=== PATIENT | male | born 1965 | race Caucasian/White ===

== ENCOUNTER 2021-10-31 11:14 | Emergency (ER) | payer OTHER ==
[~2021-10-31] VITALS: Ht 160 cm; Wt 84.1 kg
[2021-10-31 11:45] VITALS: BP 138/84
[2021-10-31] MEDS ORDERED: ALBUTEROL SULFATE HFA 90 MCG/PUFF 8 GM INHALER IH ONE (16:30)
== END 2021-10-31 17:26 | disposition home or self-care (01) ==
LOC: EMS 11:14
DX: R05.9 Cough, unspecified (principal); F17.210 Nicotine dependence, cigarettes, uncomplicated; Z20.822 Contact with and (suspected) exposure to COVID-19
CPT/HCPCS: 94640; 99283; J3535

== ENCOUNTER 2024-01-02 18:33 | Emergency (ER) | payer OTHER ==
[~2024-01-02] VITALS: Ht 160 cm; Wt 77.3 kg
[2024-01-02 18:37] VITALS: TEMP 98.6
[2024-01-02] MEDS ORDERED: SITA50 PO (18:41)
[2024-01-02] MEDS ORDERED: ASPI81TA87 PO (18:41)
[2024-01-02] MEDS ORDERED: SACU1TAB PO (18:41)
[2024-01-02] MEDS ORDERED: METF-1211 PO (18:41)
[2024-01-02] MEDS ORDERED: ATOR10TA PO (18:41)
[2024-01-02 20:20] LABS: EOSINOPHILS % (AUTO) 1.8 % (1.0-6.0); HEMATOCRIT 37.7 % (41-53); HEMOGLOBIN 13.1 g/dL (13.5-17.5); LYMPHOCYTES # (AUTO) 2.7 K/uL (1.0-4.8); LYMPHOCYTES % (AUTO) 33.9 % (22.0-44.0); MEAN CORPUSCULAR HEMOGLOBIN 32.7 pg (26.0-34.0); MEAN CORPUSCULAR HGB CONC 34.7 G/dL (31.0-37.0); MEAN CORPUSCULAR VOLUME 94 fL (80-100); MONOCYTES # (AUTO) 0.9 K/uL (0.1-1.0); MONOCYTES % (AUTO) 11.1 % (2.0-9.0); NEUTROPHILS # (AUTO) 4.2 K/uL (1.8-7.7); NEUTROPHILS % (AUTO) 52.2 % (40.0-70.0); PLATELET COUNT (AUTO) 152 K/uL (150-450); RED CELL DISTRIBUTION WIDTH 13.5 % (11.5-14.5); WHITE BLOOD COUNT (AUTO) 8.1 K/uL (4.5-11.0)
[2024-01-02 20:29] LABS: ANION GAP 9 mmol/L (8-16); CALCIUM, TOTAL 8.8 mg/dL (8.8-10.5); CARBON DIOXIDE 25 mmol/L (22-29); CHLORIDE 103 mmol/L (98-107); CREATININE 0.86 mg/dL (0.60-1.30); GLOMERULAR FILTR. RATE CALC > 60 mL/min (>60); GLUCOSE,RANDOM 148 mg/dL (70-110); POTASSIUM 3.9 mmol/L (3.5-5.1); SODIUM SERUM 137 mmol/L (136-145); UREA NITROGEN, BLOOD 25 mg/dL (7-18)
[2024-01-02 20:32] LABS: INR 1.1 (0.9-1.1)
[2024-01-02 20:35] LABS: ALANINE AMINOTRANSFERASE 75 U/L (12-78); ALBUMIN 3.2 g/dL (3.4-5.0); ALKALINE PHOSPHATASE 117 U/L (46-116); ASPARTATE AMINOTRANSFERASE 75 U/L (15-37); BILIRUBIN,TOTAL 0.5 mg/dL (0.1-1.0); TOTAL PROTEIN, SERUM 8.9 g/dL (6.4-8.2)
[2024-01-02 20:37] LABS: TROPONIN I-HIGH SENSITIVITY 17 ng/L (<76)
[2024-01-02 20:42] LABS: B-TYPE NATRIURETIC PEPTIDE 22 pg/mL (0-100)
[2024-01-02 21:00] VITALS: BP 142/94; PULSE 84; RESP 17
[2024-01-02] MEDS ORDERED: PRED-554 PO (22:46)
[2024-01-02] MEDS ORDERED: VALA500T PO (22:46)
== END 2024-01-03 00:40 | disposition home or self-care (01) ==
LOC: EMS 18:59
DX: G51.0 Bell's palsy (principal); F17.210 Nicotine dependence, cigarettes, uncomplicated
CPT/HCPCS: 70450; 71045; 80053; 82962; 83880; 84484; 85025; 85610; 85730; 93005; 99285; 36415-L1; 36415-TC